=== PATIENT | male | born 2000 | race Caucasian/White ===

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

== ENCOUNTER 2021-08-04 12:02 | Outpatient (REF) | payer MEDICAID, SELFPAY ==
[2021-08-06 14:12] LABS: COVID-19 RT-PCR UVMMC Result Negative (Negative)
== END 2021-08-04 12:03 | disposition home or self-care (01) ==
LOC: LBN 12:02
PROVIDERS: PCP Pediatrics; Visit Provider Physician Assistant Medical
DX: Z20.822 Contact with and (suspected) exposure to COVID-19 (principal); J06.9 Acute upper respiratory infection, unspecified
CPT/HCPCS: U0003

== ENCOUNTER 2023-04-01 18:19 | Emergency (ER) | payer MEDICAID, SELFPAY ==
[2023-04-01 18:26] VITALS: BP 135/67; PULSE 102; RESP 18; TEMP 36.7; O2SAT 99
--- NOTE | 2023-04-01 19:15 | ED.GENADUL_ITS ---
Discharge Plan Disposition Patient Disposition: Home Discharge Details Clinical Impression: Acute effusion of left ear, Acute seasonal allergic rhinitis Primary Care Provider: Stewart Hodges ED Provider: Cierra Owens Home Meds and New Rx's Prescriptions: No Action citalopram [Celexa] 20 MG tablet 20 mg PO DAILY ibuprofen 200 MG tablet 800 mg PO DAILY guanfacine 3 MG tablet extended release 24 hr 3 mg PO DAILY amoxicillin-pot clavulanate [Augmentin] 875-125 mg tablet 1 tab PO BID Qty: 14 0RF Discharge Instructions Instructions: Allergic Rhinitis (ED) Additional Instructions: Please use Flonase which she can get [id number] or similar nasal spray once a day. Take Claritin or Zyrtec or similar antihistamine with a decongestant which can also obtain [id number]. Gargle with warm salt water up to 3 times daily as needed. Your rapid strep was negative. Please take Tylenol or Ibuprofen with food every 4-6 hours as needed for pain and swelling. Follow up with primary care provider in 3-5 days. Return to ED sooner if any worsening or concerns. Increase oral fluids. Referrals: Stewart Hodges [Primary Care Provider] - 5 days Medical Decision Making There is an effusion in the left tympanic membrane, with a little bit of scarring, cobblestoning to the posterior oropharynx no exudate. Rapid strep negative. No lymphadenopathy. Do suspect seasonal allergies I did discuss this with patient and home care including Flonase, antihistamine and a decongestant and gargling with warm salt water he verbalizes understanding. This text was generated using [employer] dictation system, please disregard any oddities of phrase or misspellings. HPI General Mode of arrival: ambulatory . Date/Time Provider Initiated Documentation: 04/01/23 18:36 . Limitations to Documentation: no limitations . Information obtained by: patient, RN notes reviewed and old records reviewed . HPI Narrative: 22-year-old male presents to the ER with chief complaint left ear fullness, throat pain and ear popping for the last few days. Denies any fever or chills. Rapid strep is negative. Does have a small cough he is a smoker. Related Data Home Medications Medication Instructions Recorded Confirmed citalopram 20 mg tablet (Celexa) 20 mg PO DAILY 05/29/18 04/01/23 guanfacine 3 mg tablet,extended 3 mg PO DAILY 05/29/18 07/17/19 release 24 hr ibuprofen 200 mg tablet 800 mg PO DAILY 05/29/18 04/01/23 amoxicillin 875 mg-potassium 1 tab PO BID #14 tabs 07/17/19 clavulanate 125 mg tablet (Augmentin) Previous Rx's Medication Instructions Recorded amoxicillin 875 mg-potassium 1 tab PO BID #14 tabs 07/17/19 clavulanate 125 mg tablet (Augmentin) Allergies Allergy/AdvReac Type Severity Reaction Status Date / Time house dust Allergy Unverified 04/01/23 19:44 No Known Drug Allergies AdvReac Unverified 06/21/19 23:23 pollen extracts AdvReac Unverified 06/21/19 23:23 General Stated Complaint: EarProblem SADE: 4 Review of Systems ENT Ears, Nose, Mouth, and Throat: Reports as per HPI, Reports otalgia and Reports sore throat PFSH All Active Problems (Updated 04/01/23 @ 19:21 by Cierra Owens NP) Acute effusion of left ear (Acute) Acute seasonal allergic rhinitis (Acute) Social History Smoking/Tobacco Use Status: Current every day Tobacco Type: cigarettes Smoking risk assessment performed?: Yes Alcohol Intake: never Substance use type: does not use Do you feel safe in your relationship?: Yes Exam [facility] Head: normal to inspection Ears: external ears normal, TM normal on the right, mastoids normal and TM abnormal wth effusion and with fluid behind the TM; not erythematous General nose exam: external nose normal Throat: posterior oropharynx abnormal cobblestoning; no exudates Resp Effort & Inspection: normal respiratory effort Auscultation: clear to auscultation bilaterally Cardio Rhythm: regular rhythm Course Vital Signs Vital signs: Vital Signs Temperature 36.7 C 04/01/23 18:26 Pulse 102 H 04/01/23 18:26 Respiratory Rate 18 04/01/23 18:26 Blood Pressure 135/67 04/01/23 18:26 Pulse Oximetry 99 04/01/23 18:26 Temperature 36.7 C 04/01/23 18:26 Temperature Source Oral 04/01/23 18:26 Pulse 102 H 04/01/23 18:26 Respiratory Rate 18 04/01/23 18:26 Respiratory Effort Normal, Non-Labored 04/01/23 18:26 Blood Pressure 135/67 04/01/23 18:26 Pulse Oximetry 99 04/01/23 18:26 Oxygen Delivery Method Room Air 04/01/23 18:26 Oxygen Flow Rate 0 04/01/23 18:26 Lab/Test Results Lab/Test Results: 04/01/23 18:28 Tonsil - Not Specified Group A Streptococcus Culture - Pending POC Strep Test-ENOCH(Rapid) Start: 04/01/23 18:27 Freq: .Rapid Strep Test Status: Active Protocol: Document 04/01/23 18:41 CORINNA (Rec: 04/01/23 18:41 CORINNA [id number]) Strep test-ENOCH(Rapid)-POC POC-Strep test-ENOCH (Rapid) Negative POC-Strep test-ENOCH (Rapid) Negative
== END 2023-04-01 19:49 | disposition home or self-care (01) ==
PROVIDERS: Emergency Provider Registered Nurse Emergency; PCP Pediatrics
DX: J30.2 Other seasonal allergic rhinitis (principal); H65.192 Other acute nonsuppurative otitis media, left ear
CPT/HCPCS: 87880; 99283; 87081

== ENCOUNTER 2023-12-11 10:58 | Emergency (ER) | payer MEDICAID, SELFPAY ==
[2023-12-11 11:00] VITALS: BP 135/79; PULSE 98; RESP 17; O2SAT 98
[2023-12-11 11:04] VITALS: BP 135/79; PULSE 98; RESP 17; O2SAT 98
--- NOTE | 2023-12-11 11:23 | ED.GENADUL_ITS ---
HPI General Date/Time Provider Initiated Documentation: 12/11/23 11:07 . HPI Narrative: This 23-year-old male presents with sore throat for the past 72 hours. Denies known sick contacts, also has a lesion on his lip. States he has pain with swallowing denies globus sensation. Denies stiff neck. Has had subjective fevers per patient. Otherwise reportedly healthy. Has had mono when he was a teenager per patient. Related Data Home Medications Medication Instructions Recorded Confirmed citalopram 20 mg tablet (Celexa) 20 mg PO DAILY 05/29/18 12/11/23 ibuprofen 200 mg tablet 800 mg PO DAILY 05/29/18 12/11/23 amoxicillin 500 mg tablet 1,000 mg (2 x 500 mg) PO DAILY #20 12/11/23 tabs valacyclovir 1 gram tablet 2,000 mg (2 x 1 gram) PO BID #4 12/11/23 (Valtrex) tabs Previous Rx's Medication Instructions Recorded amoxicillin 500 mg tablet 1,000 mg (2 x 500 mg) PO DAILY #20 12/11/23 tabs valacyclovir 1 gram tablet 2,000 mg (2 x 1 gram) PO BID #4 12/11/23 (Valtrex) tabs Allergies Allergy/AdvReac Type Severity Reaction Status Date / Time house dust Allergy Unverified 12/11/23 11:05 No Known Drug Allergies AdvReac Unverified 12/11/23 11:05 pollen extracts AdvReac Unverified 12/11/23 11:05 General Stated Complaint: Sorethroat SADE: 4 Course Vital Signs Vital signs: Vital Signs Pulse 98 H 12/11/23 11:00 Respiratory Rate 17 12/11/23 11:00 Blood Pressure 135/79 12/11/23 11:00 Pulse Oximetry 98 12/11/23 11:00 Pulse 98 H 12/11/23 11:04 Respiratory Rate 17 12/11/23 11:04 Respiratory Effort Normal 12/11/23 11:04 Blood Pressure 135/79 12/11/23 11:04 Blood Pressure Position Sitting 12/11/23 11:04 Pulse Oximetry 98 12/11/23 11:04 Oxygen Delivery Method Room Air 12/11/23 11:04 Oxygen Flow Rate 0 12/11/23 11:04 Pain Level 10 12/11/23 11:04 Lab/Test Results Lab/Test Results: POC Strep Test-ENOCH(Rapid) Start: 12/11/23 11:13 Freq: .Rapid Strep Test Status: Active Protocol: Document 12/11/23 11:16 N.[facility] (Rec: 12/11/23 11:17 [facility] [id number]) Strep test-ENOCH(Rapid)-POC POC-Strep test-ENOCH (Rapid) Positive POC-Strep test-ENOCH (Rapid) Positive Medical Decision Making Patient presenting for lip lesion and sore throat Partner has a history of herpes, suspect herpes labialis on patient's upper lip, vesicular lesion Also oropharynx, uvula midline, erythema, tonsillar exudates, maintaining secretions, no abscess visualized, phonation of voice normal, no trismus Strep positive will treat with amoxicillin Will treat with Valtrex for likely herpes infection Referred back to primary care physician Return precautions reviewed and patient expressed understanding, single dose of Decadron for pain control Quality:SDOH Health Related Social Needs: No Data to Display PFSH All Active Problems (Updated 12/11/23 @ 11:27 by HORACIO Nash) Acute streptococcal pharyngitis (Acute) Herpes labialis (Acute) Social History Smoking/Tobacco Use Status: Current every day Tobacco Type: cigarettes Smoking risk assessment performed?: Yes Alcohol Intake: never Drug use: Never Substance use type: does not use Do you feel safe in your relationship?: Yes Discharge Plan Disposition Patient Disposition: Home Condition: Stable Discharge Details Clinical Impression: Herpes labialis, Acute streptococcal pharyngitis Primary Care Provider: Stewart Hodges ED Provider: Brianne Jose Home Meds and New Rx's Prescriptions: New valacyclovir [Valtrex] 1 gram tablet 2,000 mg PO BID Qty: 4 5RF Rx Instructions: take 2 tabs twice daily for one day amoxicillin 500 mg tablet 1,000 mg PO DAILY Qty: 20 0RF Continued citalopram [Celexa] 20 MG tablet 20 mg PO DAILY ibuprofen 200 MG tablet 800 mg PO DAILY Discharge Instructions Instructions: Pharyngitis (ED), Oral Herpes Simplex Virus Infections (ED), Viral Syndrome (ED) Additional Instructions: Take amoxicillin as prescribed for strep pharyngitis Take Valtrex for likely herpes infection on your lip Please refer to enclose packet information as this is quite contagious Do not share drinks or saliva and refer to enclose packet information Please return should you develop new or worsening complaints Discharge Data Discharge Date/Time-TO BE ENTERED AT DEPARTURE: 12/11/23 11:40
[2023-12-11] MEDS: Dexamethasone 10 MG/ML VIAL PO (11:37)
== END 2023-12-11 11:40 | disposition home or self-care (01) ==
PROVIDERS: Emergency Provider Physician Assistant; PCP Pediatrics
DX: J02.0 Streptococcal pharyngitis (principal); B00.1 Herpesviral vesicular dermatitis
CPT/HCPCS: 87880; 99283; 87081; J1100

== ENCOUNTER 2024-04-11 11:04 | Emergency (ER) | payer MEDICAID, SELFPAY ==
[2024-04-11 11:07] VITALS: BP 121/72; PULSE 76; RESP 16; TEMP 36.8; O2SAT 99
[2024-04-11 11:21] VITALS: BP 121/72; PULSE 76; RESP 16; TEMP 36.8; O2SAT 99
[2024-04-11 11:41] LABS: Abs Immature Grans 0.02 10^3/uL (0.0-0.06); Absolute Basophil Count 0.07 10^3/uL (0.0-0.2); Absolute Eosinophil Count 0.23 10^3/uL (0.0-0.7); Absolute Lymphocyte Count 2.33 10^3/uL (1.2-3.4); Absolute Monocyte Count 0.65 10^3/uL (0.1-0.8); Absolute Neutrophil Count 4.09 10^3/uL (1.2-6.7); Basophils % 0.9 %; Eosinophils % 3.1 %; HGB 14.6 g/dL (13.5-17.5); Immature Grans % 0.3 %; Lymphocytes % 31.5 %; MCH 28.2 pg (27.0-33.0); MCHC 33.2 % (32.0-36.0); MCV 85 fL (80-95); MPV 9.3 fL (8.0-11.0); Monocytes % 8.8 %; Neutrophils % 55.4 %; Platelet Count 283 10^3/uL (130-400); RBC 5.17 10^6/uL (4.36-5.78); RDW 12.3 % (11.8-14.1); RDW-SD 38.3 fL; WBC 7.39 10^3/uL (4.4-10.8)
[2024-04-11] MEDS: Famotidine 20 MG/2 ML VIAL IVP (11:58)
[2024-04-11 12:00] LABS: ALT 30 U/L (16-63); AST 17 U/L (15-37); Albumin 3.9 g/dL (3.4-5.0); Alkaline Phosphatase 96 U/L (46-116); Anion Gap 8.7 mmol/L (3-11); BUN 13 mg/dL (7-18); Bilirubin, Total 0.4 mg/dL (0.2-1.0); CO2 29.3 mmol/L (21.0-32.0); CREATININE 1.1 mg/dL (0.70-1.30); Calcium 9.2 mg/dL (8.5-10.1); Chloride 104 mmol/L (98-107); Estimated GFR 97.34 (mL/min/1.73m2); Glucose 78 mg/dL (74-106); Potassium 3.8 mmol/L (3.5-5.1); Sodium 142 mmol/L (136-145); Total Protein 7.2 g/dL (6.4-8.2)
--- NOTE | 2024-04-11 12:00 | DI.CT_ITS ---
Exam(s) CT ABDOMEN PELVIS W EXAM: CT ABDOMEN PELVIS W CLINICAL HISTORY: upper abd pain, elevated lipase. TECHNIQUE: Imaging Protocol: Axial computed tomography images with coronal and sagittal reformatted images were created and reviewed CONTRAST MATERIAL: Intravenous: Omnipaque-350 100cc Oral: None COMPARISON: No exams were available for comparison FINDINGS: VISUALIZED LUNG BASES: No nodules nor pleural effusions evident. ABDOMEN: There is no ascites. LIVER: There are no focal hepatic lesions evident. No dilated intrahepatic ducts. GALLBLADDER/BILIARY: No obvious gallbladder pathology. CBD is not dilated. PANCREAS: No evidence of pancreatic mass nor dilatation of the pancreatic duct. SPLEEN: Spleen is not enlarged. No obvious intrasplenic lesions. Splenic and portal veins are paten t. ADRENALS: There are no significant adrenal masses. KIDNEYS:No cysts evident. No solid renal masses. No calculi nor hydronephrosis.. ABDOMINAL AORTA: Abdominal aorta is not enlarged. LYMPH NODES:There is no retroperitoneal nor paraaortic adenopathy. ABDOMINAL WALL: No evidence of significant anterior abdominal wall nor inguinal hernia. GI: Abundant fecal material is noted throughout the length of the entire colon. Possible constipatio n. PELVIS: GI: No evidence of appendicitis.No significant sigmoid diverticular disease. LYMPH NODES: There is no intrapelvic nor inguinal adenopathy. REPRODUCTIVE: Prostate not enlarged. Seminal vesicles unremarkable. URINARY BLADDER: No calculi nor obvious masses evident OSSEOUS: No fractures and no significant osseous lesions. Sacroiliac joints unremarkable. IMPRESSION: 1. No acute findings in the abdomen and pelvis. No evidence of acute appendicitis. No diverticuliti s. 2. Abundant fecal material is noted in the colon-probable element of constipation. 3. No evidence of ascites. RADIATION DOSE DELIVERED: 1,069.72mGy.cm Total DLP DATA REPOSITORY: All CT scans at this facility are submitted to the National Radiology Data Registry (NRDR) Dose Index Registry (DIR) with the [employer] ([employer]). RADIATION OPTIMIZATION: All CT scans at this facility use at least one of these dose optimization te chniques: automated exposure control; mA and/or kV adjustment per patient size (includes targeted exa ms where dose is matched to clinical indication); or iterative reconstruction.
[2024-04-11 12:03] LABS: Lipase 367 U/L (16-77)
[2024-04-11] MEDS: Omnipaque 350 MG/ML 100 ML BTL IJ (12:46)
--- NOTE | 2024-04-11 13:35 | DI.VRAD_ITS ---
PROCEDURE INFORMATION: Exam: CT Abdomen And Pelvis With Contrast Exam date and time: 04/11/2024 12:40 PM Age: 23 years old Clinical indication: Abdominal pain TECHNIQUE: Imaging protocol: Computed tomography of the abdomen and pelvis with contrast. COMPARISON: No relevant prior studies available. FINDINGS: Liver: Normal. No mass. Gallbladder and bile ducts: Normal. No calcified stones. No ductal dilation. Pancreas: Normal. No ductal dilation. Spleen: Normal. No splenomegaly. Adrenal glands: Normal. No mass. Kidneys and ureters: Normal. No hydronephrosis. Stomach and bowel: Moderate solid stool volume. Normal caliber small bowel. Appendix: No evidence of appendicitis. Intraperitoneal space: Unremarkable. No free air. No significant fluid collection. Vasculature: Unremarkable. No abdominal aortic aneurysm. Lymph nodes: Scattered inguinal lymph nodes and mesenteric lymph nodes. Urinary bladder: Unremarkable as visualized. Reproductive: Unremarkable as visualized. Bones/joints: Unremarkable. No acute fracture. Soft tissues: Unremarkable. IMPRESSION: No acute findings. Dictated and Authenticated by: Yue Yanes MD. Ordering:LUH Garcia MD
--- NOTE | 2024-04-11 13:46 | W.ED.GENAD ---
Discharge Plan Disposition Patient Disposition: Home Condition: Stable Discharge Details Clinical Impression: Abdominal pain, Acute pancreatitis Primary Care Provider: Stewart Hodges ED Provider: Jose Nam Home Meds and New Rx's Prescriptions: Continued citalopram [Celexa] 20 MG tablet 20 mg PO DAILY ibuprofen 200 MG tablet 800 mg PO DAILY valacyclovir [Valtrex] 1 gram tablet 2,000 mg PO BID Qty: 4 5RF Rx Instructions: take 2 tabs twice daily for one day Discharge Instructions Instructions: Pancreatitis (ED) Additional Instructions: Please allow for bowel rest over the next 2 days. Maintain a clear liquid diet today and tomorrow. You may advance your diet slowly the following day to bland foods like rice. Advance slowly daily thereafter. Please contact your primary care physician to arrange follow-up. Call first thing Saturday morning. You should have repeat abdominal exam and repeat blood testing done next week. Discussed this with your doctor. Return to the ER immediately for any worsening or new concerning symptoms. Referrals: Stewart Hodges [Primary Care Provider] - [facility] General Mode of arrival: ambulatory. Date/Time Provider Initiated Documentation: 04/11/24 11:17. Limitations to Documentation: no limitations. Information obtained by: patient. HPI Narrative: 23-year-old male presents with upper abdominal pain on past 4 to 5 days. Patient notes pain is intermittent. Initially started on his left upper abdomen and now more pronounced in his epigastric and right upper abdomen. Patient notes worse with eating at times. Pain is moderate at worst and currently mild. Pain is described as a discomfort, sometimes sharp. He notes increased belching recently. No vomiting. No diarrhea. No bright red blood per rectum or melena. Related Data Home Medications Medication Instructions Recorded Confirmed citalopram 20 mg tablet (Celexa) 20 mg PO DAILY 05/29/18 04/11/24 ibuprofen 200 mg tablet 800 mg PO DAILY 05/29/18 04/11/24 valacyclovir 1 gram tablet 2,000 mg (2 x 1 gram) PO BID #4 12/11/23 04/11/24 (Valtrex) tabs Previous Rx's Medication Instructions Recorded valacyclovir 1 gram tablet 2,000 mg (2 x 1 gram) PO BID #4 12/11/23 (Valtrex) tabs Allergies Allergy/AdvReac Type Severity Reaction Status Date / Time house dust Allergy Mild Skin Rash Unverified 04/11/24 11:14 pollen extracts AdvReac Mild Wheezing Unverified 04/11/24 11:14 No Known Drug Allergies AdvReac Unknown Unverified 04/11/24 11:14 General Stated Complaint: Abd Prob SADE: 3 Review of Systems All systems reviewed & are unremarkable except as noted in HPI and below Constitutional Constitutional: Denies fever(s) Gastrointestinal Gastrointestinal: Reports as per HPI Exam Const General: cooperative and no acute distress HENMT Head: normocephalic and atraumatic Mouth: moist mucous membranes Eyes Conjunctivae: normal conjunctivae Sclera: normal sclerae Neck Neck: trachea midline and supple Resp Auscultation: clear to auscultation bilaterally, no rales, no rhonchi and no wheezes Cardio Rate: regular rate and not tachycardic Rhythm: regular rhythm GI Palpation: soft, not firm, no guarding, no masses, not rigid and tender (mid upper abd) Skin General skin exam: no rashes or lesions noted Neuro General: patient alert, patient awake, patient oriented x3 and tone normal Extrem General: no edema Psych Appearance: grossly normal Mental Status: mental status grossly normal Speech and Movement: speech and movement normal Course Vital Signs Vital signs: Vital Signs Temperature 36.8 C 04/11/24 11:07 Pulse 76 04/11/24 11:07 Respiratory Rate 16 04/11/24 11:07 Blood Pressure 121/72 04/11/24 11:07 Pulse Oximetry 99 04/11/24 11:07 Temperature 36.8 C 04/11/24 11:21 Temperature Source Tympanic 04/11/24 11:21 Pulse 76 04/11/24 11:21 Respiratory Rate 16 04/11/24 11:21 Respiratory Effort Normal 04/11/24 11:36 Blood Pressure 121/72 04/11/24 11:21 Blood Pressure Position Sitting 04/11/24 11:21 Pulse Oximetry 99 04/11/24 11:21 Oxygen Delivery Method Room Air 04/11/24 11:21 Oxygen Flow Rate 0 04/11/24 11:07 Pain Level 0 04/11/24 11:21 Lab/Test Results Lab/Test Results: Laboratory Tests Range/Units 04/11/24 11:25 WBC (4.4-10.8) 10^3/uL 7.39 RBC (4.36-5.78) 10^6/uL 5.17 Hgb (13.5-17.5) g/dL 14.6 Hct (40.0-50.0) % 44.0 MCV (80-95) fL 85 MCH (27.0-33.0) pg 28.2 MCHC (32.0-36.0) % 33.2 RDW (11.8-14.1) % 12.3 Plt Count (130-400) 10^3/uL 283 MPV (8.0-11.0) fL 9.3 Immature Gran % % 0.3 Neutrophils % % 55.4 Lymphocytes % % 31.5 Monocytes % % 8.8 Eosinophils % % 3.1 Basophils % % 0.9 Nucleated RBC % (0.0-0.3) % 0.0 Absolute Neutrophils (1.2-6.7) 10^3/uL 4.09 Absolute Lymphocytes (1.2-3.4) 10^3/uL 2.33 Absolute Monocytes (0.1-0.8) 10^3/uL 0.65 Absolute Eosinophils (0.0-0.7) 10^3/uL 0.23 Absolute Basophils (0.0-0.2) 10^3/uL 0.07 Sodium (136-145) mmol/L 142 Potassium (3.5-5.1) mmol/L 3.8 Chloride (98-107) mmol/L 104 Carbon Dioxide (21.0-32.0) mmol/L 29.3 Anion Gap (3-11) mmol/L 8.7 BUN (7-18) mg/dL 13 Creatinine (0.70-1.30) mg/dL 1.1 Est GFR (CKD-EPI 2020) (mL/min/1.73m2) 97.34 Glucose (74-106) mg/dL 78 Calcium (8.5-10.1) mg/dL 9.2 Total Bilirubin (0.2-1.0) mg/dL 0.4 AST (15-37) U/L 17 ALT (16-63) U/L 30 Alkaline Phosphatase (46-116) U/L 96 Total Protein (6.4-8.2) g/dL 7.2 Albumin (3.4-5.0) g/dL 3.9 Lipase (16-77) U/L 367 H Medical Decision Making 23-year-old male here with 4 to 5 days of intermittent upper abdominal pain. Patient has no associated nausea or vomiting. His abdominal exam is relatively benign. He does have some mild tenderness in his epigastric area. No peritoneal findings. POCUS exam performed of his right upper quadrant and there is no evidence of acute cholecystitis or cholelithiasis. Labs labs reviewed and lipase is elevated at 367. Suspect mild pancreatitis of unclear etiology. CT of the abdomen pelvis was obtained to assess for acute surgical process and interpreted by radiology: Pancreas noted to be normal with no ductal dilatation. Gallbladder and bile ducts noted to be normal with no calcified stones or ductal dilatation. No free air and no significant fluid collection. No acute findings. Patient was given IVF fluid bolus. Plan for bowel rest over the next 2 days. Plan for outpatient follow-up with PCP for repeat lipase testing. Disposition decision was made weighing the risks and benefits of hospitalization versus outpatient treatment, the risk for further decompensation, and the patient's wishes. The patient was stable and requested discharge. Prior to discharge, my usual and customary return precautions were reviewed with the patient - this included follow-up instructions and reason to return to the emergency department if condition worsens, does not improve as expected, or other new concerns arise. Lab Data Lab results reviewed: Yes I reviewed the patient's lab results. Labs: Laboratory Tests Range/Units 04/11/24 11:25 WBC (4.4-10.8) 10^3/uL 7.39 RBC (4.36-5.78) 10^6/uL 5.17 Hgb (13.5-17.5) g/dL 14.6 Hct (40.0-50.0) % 44.0 MCV (80-95) fL 85 MCH (27.0-33.0) pg 28.2 MCHC (32.0-36.0) % 33.2 RDW (11.8-14.1) % 12.3 Plt Count (130-400) 10^3/uL 283 MPV (8.0-11.0) fL 9.3 Immature Gran % % 0.3 Neutrophils % % 55.4 Lymphocytes % % 31.5 Monocytes % % 8.8 Eosinophils % % 3.1 Basophils % % 0.9 Nucleated RBC % (0.0-0.3) % 0.0 Absolute Neutrophils (1.2-6.7) 10^3/uL 4.09 Absolute Lymphocytes (1.2-3.4) 10^3/uL 2.33 Absolute Monocytes (0.1-0.8) 10^3/uL 0.65 Absolute Eosinophils (0.0-0.7) 10^3/uL 0.23 Absolute Basophils (0.0-0.2) 10^3/uL 0.07 Sodium (136-145) mmol/L 142 Potassium (3.5-5.1) mmol/L 3.8 Chloride (98-107) mmol/L 104 Carbon Dioxide (21.0-32.0) mmol/L 29.3 Anion Gap (3-11) mmol/L 8.7 BUN (7-18) mg/dL 13 Creatinine (0.70-1.30) mg/dL 1.1 Est GFR (CKD-EPI 2020) (mL/min/1.73m2) 97.34 Glucose (74-106) mg/dL 78 Calcium (8.5-10.1) mg/dL 9.2 Total Bilirubin (0.2-1.0) mg/dL 0.4 AST (15-37) U/L 17 ALT (16-63) U/L 30 Alkaline Phosphatase (46-116) U/L 96 Total Protein (6.4-8.2) g/dL 7.2 Albumin (3.4-5.0) g/dL 3.9 Lipase (16-77) U/L 367 H Quality:SDOH Health Related Social Needs: No Data to Display PFSH All Active Problems (Updated 04/11/24 @ 13:55 by Jose Nam MD) Acute pancreatitis (Acute) Abdominal pain (Acute) Social History Smoking/Tobacco Use Status: Current every day Tobacco Type: cigarettes Smoking risk assessment performed?: Yes Alcohol Intake: never Drug use: Never Substance use type: does not use Do you feel safe in your relationship?: Yes
[2024-04-11] MEDS: Lactated Ringers 1,000 ML 1000 ML IV (13:56)
[2024-04-11 15:40] VITALS: BP 141/58; PULSE 76; RESP 18; TEMP 36.1; O2SAT 99
--- NOTE | 2024-04-11 15:47 | W.EDPROG ---
Date of service: 04/11/24 Time of Service: 15:47 Medical Decision Making Quality:SDOH Health Related Social Needs: No Data to Display Discharge Plan Disposition Patient Disposition: Home Condition: Stable Discharge Details Clinical Impression: Abdominal pain, Acute pancreatitis Primary Care Provider: Stewart Hodges ED Provider: Jose Nam Home Meds and New Rx's Prescriptions: Continued citalopram [Celexa] 20 MG tablet 20 mg PO DAILY ibuprofen 200 MG tablet 800 mg PO DAILY valacyclovir [Valtrex] 1 gram tablet 2,000 mg PO BID Qty: 4 5RF Rx Instructions: take 2 tabs twice daily for one day Discharge Instructions Instructions: Pancreatitis (ED) Additional Instructions: Please allow for bowel rest over the next 2 days. Maintain a clear liquid diet today and tomorrow. You may advance your diet slowly the following day to bland foods like rice. Advance slowly daily thereafter. Please contact your primary care physician to arrange follow-up. Call first thing Saturday morning. You should have repeat abdominal exam and repeat blood testing done next week. Discussed this with your doctor. Return to the ER immediately for any worsening or new concerning symptoms. Referrals: Stewart Hodges [Primary Care Provider] - POCUS Exam (ED) Limited Gallbladder Exam DATE OF EXAM: 04/11/24 TIME OF EXAM: 11:30 PROVIDER THAT PERFORMED THE STUDY: Jose Nam IS THIS A REPEAT EXAM DURING THIS ENCOUNTER: No REASON FOR VISIT: Abdominal pain VISUALIZED STRUCTURES: Gallbladder PERTINENT FINDINGS/IMPRESSION: No Cholecystitis, No Cholelithiasis, No gallstones and No Pericholecystic fluid Exam complete
--- NOTE | 2024-04-11 16:06 | NUR.NOTE ---
Referral for follow up for elevated lipase, needs repeat; for this week to PCP; [facility]. Nursing Note:
== END 2024-04-11 15:51 | disposition home or self-care (01) ==
LOC: ER 14:00
PROVIDERS: Emergency Provider Student in an Organized Health Care Education/Training Program; PCP Pediatrics
DX: K85.90 Acute pancreatitis without necrosis or infection, unspecified (principal); F17.210 Nicotine dependence, cigarettes, uncomplicated
CPT/HCPCS: 00123; 76705; 80053; 83690; 96360; 96361; 99285; 74177; 85025; 99284; J3490

== ENCOUNTER 2024-12-13 18:31 | Emergency (ER) | payer MEDICAID, SELFPAY ==
[2024-12-13 18:34] VITALS: BP 127/90; PULSE 95; RESP 20; TEMP 36.9; O2SAT 94
--- NOTE | 2024-12-13 18:58 | ED.GENADUL_ITS ---
Discharge Plan Disposition Patient Disposition: Home Condition: Stable Discharge Details Clinical Impression: Gastroenteritis Primary Care Provider: Stewart Hodges ED Provider: Tex Dimas Home Meds and New Rx's Prescriptions: Continued citalopram [Celexa] 20 MG tablet 20 mg PO DAILY ibuprofen 200 MG tablet 800 mg PO DAILY Discharge Instructions Instructions: Viral gastroenteritis in adults, Ondansetron Additional Instructions: You were seen in the emergency department for likely viral gastroenteritis, nausea vomiting and diarrhea, this will likely pass in the next few days, if sent you home with some ondansetron antinausea tablets, take these 20 to 30 minutes before attempting oral intake of hydration and nutrition. Please monitor your condition closely, take regular doses of Tylenol and ibuprofen and return for any intractable nausea vomiting despite treatment, profound lethargy, respiratory distress or any other emergent concern. Referrals: Stewart Hodges [Primary Care Provider] - Discharge Data Discharge Date/Time-TO BE ENTERED AT DEPARTURE: 12/13/24 21:01 HPI General Date/Time Provider Initiated Documentation: 12/13/24 18:55 . HPI Narrative: 24 year-old male presents to ED today by POV/ambulating with a chief complaint of possible food poisoning, having nausea/vomiting, and progressing to diarrhea with partial resolution of vomiting with onset 5pm yesterday. Quality described as generalized abdominal cramping, no radiation to fever, chest pain, shortness of breath, black or bloody stools, dysuria, urinary retention, cough. Severity is described as moderate. Palliating factors include nothing specific attempted. Provoking factors include nothing specific. Events leading up to the incident/Associated Symptoms: Patient endorses that yesterday he could not keep anything down but today is having better luck with food and fluids. Patient not anticoagulated. Related Data Home Medications ?Medication ?Instructions ?Recorded ?Confirmed citalopram 20 mg tablet (Celexa) 20 mg PO DAILY 05/29/18 12/13/24 ibuprofen 200 mg tablet 800 mg PO DAILY 05/29/18 12/13/24 Allergies Allergy/AdvReac Type Severity Reaction Status Date / Time house dust Allergy Mild Skin Rash Verified 12/13/24 18:34 pollen extracts AdvReac Mild Wheezing Verified 12/13/24 18:34 No Known Drug Allergies AdvReac Unknown Verified 12/13/24 18:34 General Stated Complaint: Nausea/Vomit/Diar SADE: 3 Review of Systems All systems reviewed & are unremarkable except as noted in HPI and below Exam Narrative Exam Narrative: GENERAL APPEARANCE: Well-nourished, non-toxic, awake and alert, atraumatic, no acute distress. SKIN: Warm, pink, dry, intact, without rashes/lesions/ulcerations. HEAD: Normocephalic, atraumatic, normal hair distribution for gender/age. EYES: Normal conjunctiva, no exudates on lids/lashes. ENT: Nares patent, no circumoral cyanosis, no facial swelling NECK: Supple, trachea midline, painless cervical ROM. LUNGS/CHEST: Lungs CTA bilaterally, non-labored respirations, normal A/P diameter, symmetrical expansion, no chest wall deformity HEART (CV/PV): Regular rate and rhythm without murmur, no peripheral edema, no JVD. ABDOMEN: Soft, non-distended, no guarding, mild diffuse tenderness without McBurney's point tenderness or Fernandez sign. MSK: Normal ROM, no swelling/deformity to bilateral UEs or LEs, moving all extremities without weakness, no cyanosis, spine midline without tenderness, normal curvature. NEURO: Mental Status AAOx4 - alert to person, place, time, events No facial droop, no forehead involvement. Motor: No focal weakness - strength 5/5 in bilateral UEs and LEs, proximal and distal, symmetric. Sensory: sensation intact to light touch globally. Gait normal: patient ambulated without ataxia into ED room. PSYCH: euthymic, cooperative, pleasant, appropriate speech Course Vital Signs Vital signs: Vital Signs Temperature 36.9 C 12/13/24 18:34 Pulse 95 H 12/13/24 18:34 Respiratory Rate 20 12/13/24 18:34 Blood Pressure 127/90 12/13/24 18:34 Pulse Oximetry 94 12/13/24 18:34 Temperature 36.9 C 12/13/24 18:34 Temperature Source Oral 12/13/24 18:34 Pulse 95 H 12/13/24 18:34 Respiratory Rate 20 12/13/24 18:34 Blood Pressure 127/90 12/13/24 18:34 Blood Pressure Position Sitting 12/13/24 18:34 Pulse Oximetry 94 12/13/24 18:34 Oxygen Delivery Method Room Air 12/13/24 18:34 Oxygen Flow Rate 0 12/13/24 18:34 Pain Level 4 12/13/24 18:34 Comment Complains of PUCKETT. 12/13/24 18:34 Medical Decision Making This dictation utilizes [id number] dictation software and may contain unedited grammatical errors. 24 year-old male presents to ED today by POV/ambulating with a chief complaint of possible food poisoning, having nausea/vomiting, and progressing to diarrhea with partial resolution of vomiting with onset 5pm yesterday. Quality described as generalized abdominal cramping, no radiation to fever, chest pain, shortness of breath, black or bloody stools, dysuria, urinary retention, cough. Severity is described as moderate. Palliating factors include nothing specific attempted. Provoking factors include nothing specific. Events leading up to the incident /Associated Symptoms: Patient endorses that yesterday he could not keep anything down but today is having better luck with food and fluids. Patients' medical history: Noncontributory. Family and social history: Noncontributory. Pertinent exam findings / vital signs include mild abdominal cramping, overtly nontender, benign cardiopulmonary status, no McBurney's point tenderness, negative Fernandez sign Differential / pathologies of concern include URI, gastroenteritis, food poisoning. Diagnostic studies of: -COVID/flu/RSV PCR. Interventions of: -Ibuprofen, acetaminophen, Zofran with relief of nausea. ED Course/Assessment/Plan: 24-year-old male presents with likely viral gastroenteritis, he is negative for COVID and the flu. He has some nausea vomiting last night after some possible toxic food ingestion now having progressive diarrhea. His nausea and vomiting has improved today. I discussed unlikely need for imaging or labs with the patient was comfortable with this disposition was sent home with Jazzy, recommend he push p.o. hydration and nutrition well and return for any emergent concerns or profound weakness, intractable nausea or vomiting, severe increased abdominal pain fever. Findings not consistent with appendicitis, cholecystitis, SBO, URI or respiratory distress. Disposition of gastroenteritis. Patient verbalized understanding of the plan and return to ED criteria and engaged in shared decision making. Medical Records Medical records reviewed: Yes I reviewed the patient's medical records. Lab Data Lab results reviewed: Yes I reviewed the patient's lab results. Labs: Laboratory Tests Range/Units 12/13/24 19:42 COVID-19 Source Nasopharynx SARS-CoV-2 (PCR) (Negative) Negative Influenza Type A (PCR) (Negative) Negative Influenza Type B (PCR) (Negative) Negative RSV (PCR) (Negative) Negative Quality:SDOH Health Related Social Needs: No Data to Display PFSH All Active Problems (Updated 12/13/24 @ 20:52 by HORACIO Khan) Gastroenteritis (Acute) Social History Smoking/Tobacco Use Status: Current every day Tobacco Type: cigarettes Years smoked: 13 Smoking risk assessment performed?: Yes Alcohol Intake: never Drug use: Never Substance use type: does not use Housing: apartment Do you feel safe in your relationship?: Yes
[2024-12-13 19:30] VITALS: BP 128/88; PULSE 90; RESP 16; O2SAT 94
[2024-12-13] MEDS: Acetaminophen 500 MG TAB 1000 MG PO (19:44)
[2024-12-13] MEDS: Ibuprofen 400 MG TAB PO (19:44)
[2024-12-13] MEDS: Ondansetron O.D.T. 4 MG TABEF PO (19:44)
[2024-12-13 20:31] LABS: COVID-19 PCR Negative (Negative); Influenza A PCR Negative (Negative); Influenza B PCR Negative (Negative); RSV PCR Negative (Negative)
[2024-12-13 20:32] LABS: Source Nasopharynx
[2024-12-13 20:46] VITALS: BP 122/86; PULSE 88; RESP 16; O2SAT 97
[2024-12-13 21:00] VITALS: BP 124/80; PULSE 84; RESP 16; O2SAT 96
[2024-12-13] MEDS: Ondansetron O.D.T. 4 MG TABEF, 3 TABS/BTL PO (21:00)
== END 2024-12-13 21:01 | disposition home or self-care (01) ==
PROVIDERS: Emergency Provider Physician Assistant; PCP Pediatrics
DX: K52.9 Noninfective gastroenteritis and colitis, unspecified (principal); R11.2 Nausea with vomiting, unspecified; R19.7 Diarrhea, unspecified
CPT/HCPCS: 87637; 99283

== ENCOUNTER 2025-03-18 15:14 | Outpatient (REF) | payer MEDICAID, SELFPAY ==
[2025-03-18 15:53] LABS: Hemoglobin A1C 5.2 % (<5.7)
[2025-03-18 15:55] LABS: Calculated LDL 114 mg/dL (<100); Cholesterol 214 mg/dL (<200); HDL Cholesterol 63 mg/dL (>or=40); Triglyceride 188 mg/dL (<150)
== END 2025-03-18 15:15 | disposition home or self-care (01) ==
LOC: NCHCN 15:14
PROVIDERS: PCP Pediatrics; Visit Provider Student in an Organized Health Care Education/Training Program
DX: Z13.1 Encounter for screening for diabetes mellitus (principal); Z13.220 Encounter for screening for lipoid disorders
CPT/HCPCS: 80061; 83036

== ENCOUNTER 2025-11-02 13:15 | Outpatient (REF) | payer MEDICAID, SELFPAY ==
[2025-11-02 15:55] LABS: Abs Immature Grans 0.04 10^3/uL (0.0-0.06); HCT 44.6 % (40.0-50.0); HGB 14.7 g/dL (13.5-17.5); Immature Grans % 0.5 %; MCH 28.1 pg (27.0-33.0); MCHC 33.0 % (32.0-36.0); MCV 85 fL (80-95); MPV 9.3 fL (8.0-11.0); Platelet Count 331 10^3/uL (130-400); RBC 5.24 10^6/uL (4.36-5.78); RDW 11.9 % (11.8-14.1); RDW-SD 36.8 fL; WBC 8.37 10^3/uL (4.4-10.8)
[2025-11-02 16:14] LABS: ALT 61 U/L (10-49); AST 37 U/L (<34); Albumin 4.4 g/dL (3.2-5.0); Alkaline Phosphatase 112 U/L (46-116); Anion Gap 7.5 mmol/L (3-11); BUN 12 mg/dL (9-23); Bilirubin, Total 0.3 mg/dL (0.2-1.2); CO2 27.5 mmol/L (20.0-31.0); Calcium 9.5 mg/dL (8.3-10.6); Chloride 108 mmol/L (98-107); Glucose 98 mg/dL (74-106); Potassium 4.2 mmol/L (3.5-5.1); Sodium 143 mmol/L (136-145); TSH (W/Ref FT4) 1.62 uIU/mL (0.55-4.78); Total Protein 7.0 g/dL (5.7-8.2)
== END 2025-11-02 13:16 | disposition home or self-care (01) ==
LOC: NCHCN 13:15
PROVIDERS: PCP Pediatrics; Visit Provider Student in an Organized Health Care Education/Training Program
DX: R00.0 Tachycardia, unspecified (principal); F10.90 Alcohol use, unspecified, uncomplicated
CPT/HCPCS: 80053; 84443; 85025